=== PATIENT | female | born 1945 ===

== ENCOUNTER 2018-03-24 07:09 | Day surgery (SDC) | payer MEDICARE ==
[2018-03-24 07:32] VITALS: BMI 21.9
--- NOTE | 2018-03-24 08:55 | CP.SDSHP ---
Same Day Surgery H & P - History Proposed Procedure: colonoscopy Pre-Op Diagnosis: h/o colon polyps 2011. unexplained weight loss - Previous Medical/Surgical History Cardiac: Hypertension, Other (hyperlipidemia, ) Pulmonary: Asthma Misc: Other (DJD, Osteoporosis, diverticulosis, colon polyps, ) Previous Surgical History: . appendectomy - Allergies Allergies: Allergies No Known Allergies Allergy (Verified 03/24/18 07:32) - Physical Exam Vital Signs: Vital Signs 03/24/18 07:36 Temperature 97.3 F L Pulse Rate 80 Respiratory 17 Rate Blood Pressure 142/62 O2 Sat by Pulse 98 Oximetry Mental Status: Alert & Oriented x3 Neuro: WNL Heart: WNL Lungs: WNL GI: WNL - Impression Impression: h/o colon polyps. unexplained weight loss Pt. Evaluated Today:Candidate for Anesthesia & Procedure: Yes - Date & Time Date: 03/24/18 Time: 08:54 Short Stay Discharge - Short Stay Discharge Admitting Diagnosis/Reason for Visit: ABNORMAL WEIGHT LOSS, DIVERTICULITIS OF LARGE, H/O Disposition: HOME/ ROUTINE
[2018-03-24] MEDS ORDERED: Propofol 10 mg/ml Inj (20 ML) ONE (08:59)
[2018-03-24] MEDS ORDERED: Lactated Ringer's 1,000 ML IV ONE (09:00)
[2018-03-24 09:58] VITALS: TEMP 98; O2SAT 100
[2018-03-24 11:00] VITALS: BP 156/81; PULSE 75; RESP 16
== END 2018-03-24 10:40 | disposition home or self-care (01) ==
LOC: C.ENDO 07:09
PROVIDERS: ATTEND Internal Medicine Gastroenterology
DX: K57.30 Diverticulosis of large intestine without perforation or abscess without bleeding (principal); K64.1 Second degree hemorrhoids; R63.4 Abnormal weight loss; Z86.010 Personal history of colon polyps; E78.5 Hyperlipidemia, unspecified; I10 Essential (primary) hypertension; J45.909 Unspecified asthma, uncomplicated; M19.90 Unspecified osteoarthritis, unspecified site; M81.0 Age-related osteoporosis without current pathological fracture
CPT/HCPCS: 45378; J2704; J7120

== ENCOUNTER 2018-09-02 07:25 | Day surgery (SDC) | payer MEDICARE ==
[2018-09-02] MEDS ORDERED: Propofol 10 mg/ml Inj (20 ML) ONE (10:06)
--- NOTE | 2018-09-02 10:06 | CP.SDSHP ---
Same Day Surgery H & P - History Proposed Procedure: EGD Pre-Op Diagnosis: heartburn. epigastric pain. weight loss - Previous Medical/Surgical History Cardiac: Hypertension, Other (hyperlipiedemia, osteoporosis, ) Pulmonary: Asthma Endocrine/Metabolic: Diabetes Misc: Other (diverticulosis, hemorrhoids, DJD) Pain: 2.Mild Pain Previous Surgical History: appendix. - Allergies Allergies: Allergies No Known Allergies Allergy (Verified 03/24/18 07:32) - Physical Exam Vital Signs: Vital Signs 09/02/18 07:35 Temperature 97.7 F Pulse Rate 65 Respiratory 19 Rate Blood Pressure 116/66 O2 Sat by Pulse 99 Oximetry Mental Status: Alert & Oriented x3 Neuro: WNL Heart: WNL Lungs: WNL GI: WNL - Impression Impression: heartburn. epigastric pain. weight loss Pt. Evaluated Today:Candidate for Anesthesia & Procedure: Yes - Date & Time Date: 09/02/18 Time: 10:06 Short Stay Discharge - Short Stay Discharge Admitting Diagnosis/Reason for Visit: HEARTBURN,EPIGASTRIC PAIN,ABNORMAL WEIGHT LOSS Disposition: HOME/ ROUTINE
[2018-09-02 10:33] VITALS: RESP 12
[2018-09-02 10:43] VITALS: O2SAT 100
[2018-09-02 13:23] VITALS: PULSE 64
[2018-09-02 13:27] VITALS: BP 143/72; TEMP 97.4
== END 2018-09-02 11:30 | disposition home or self-care (01) ==
LOC: C.ENDO 07:25
PROVIDERS: ATTEND Internal Medicine Gastroenterology
DX: K29.50 Unspecified chronic gastritis without bleeding (principal); K21.0 Gastro-esophageal reflux disease with esophagitis; R10.13 Epigastric pain; R63.4 Abnormal weight loss; K57.30 Diverticulosis of large intestine without perforation or abscess without bleeding; Z86.010 Personal history of colon polyps; I10 Essential (primary) hypertension; E78.5 Hyperlipidemia, unspecified; M81.0 Age-related osteoporosis without current pathological fracture; J45.909 Unspecified asthma, uncomplicated; E11.9 Type 2 diabetes mellitus without complications
CPT/HCPCS: 43239; 88305; 88312; 88313; 88342; J2704

== ENCOUNTER 2018-12-26 07:56 | Outpatient (CLI) | payer MEDICARE | END 2018-12-26 07:57 | disposition home or self-care (01) | LOC: C.LAB 07:56 | DX: E78.5 Hyperlipidemia, unspecified (principal) ==

== ENCOUNTER 2019-04-20 07:29 | Outpatient (CLI) | payer MEDICARE | END 2019-04-20 07:30 | disposition home or self-care (01) | LOC: C.USIC 07:30 | DX: R10.9 Unspecified abdominal pain (principal) ==

== ENCOUNTER 2019-04-20 08:26 | Outpatient (CLI) | payer MEDICARE | END 2019-04-20 08:27 | disposition home or self-care (01) | LOC: C.LAB 08:26 ==